=== PATIENT | male | born 1990 | race African-American/Black ===

== ENCOUNTER 2020-04-04 12:44 | Inpatient (IN) | payer MEDICAID, OTHER ==
[~2020-04-04] VITALS: Ht 188 cm; Wt 91.2 kg
[2020-04-04] MEDS ORDERED: LORAZEPAM 2MG/ML CPJ IM STA (13:07)
[2020-04-04] MEDS ORDERED: HALOPERIDOL LACTATE 5MG/ML VIAL IM STA (13:07)
[2020-04-04] MEDS ORDERED: CEFTRIAXONE 1 G PREMIX 50 ML IV ONE (14:30)
[2020-04-04 14:49] LABS: BASOPHILS % 0.7 % (0.0-2.0); EOSINOPHILS % 0.9 % (0.0-5.0); HEMATOCRIT. 30.7 % (42.0-52.0); HEMOGLOBIN. 10.3 g/dL (14.0-18.0); LYMPHOCYTES % 11.6 % (20.0-50.0); MEAN CORPUSCULAR HEMOGLOBIN 26.8 pg (28.0-32.0); MEAN CORPUSCULAR VOLUME 80.2 fL (80.0-94.0); MEAN PLATELET VOLUME 6.9 fl (7.4-10.4); MONOCYTES % 6.3 % (2.0-8.0); NEUTROPHILS % 80.5 % (40.0-76.0); PLATELET 484 x1000/uL (130-400); RED BLOOD CELL COUNT 3.83 mill/uL (4.7-6.1); RED CELL DISTRIBUTION WIDTH 17.4 % (11.6-14.6)
[2020-04-04 14:54] LABS: CHLORIDE 101 mEq/L (98-107)
[2020-04-04 14:59] LABS: ETHANOL BLOOD < 10 mg/dL
[2020-04-04 15:44] LABS: CLARITY URINE TURBID (CLEAR); COLOR URINE ORANGE (YELLOW); KETONES URINE 2+ (NEGATIVE); LEUKOCYTE ESTERASE URINE 1+ (NEGATIVE); NITRITE URINE POSITIVE (NEGATIVE); OCCULT BLOOD URINE 2+ (NEGATIVE); PH URINE 5.5 (4.5-8.0); PROTEIN URINE 2+ (NEGATIVE); SPECIFIC GRAVITY URINE 1.035 (1.005-1.030); UROBILINOGEN URINE 0.2 E.U./dL (0.2-1.0)
[2020-04-04 16:17] LABS: *BARBITURATES SCREEN URINE NEGATIVE (NEGATIVE)
[2020-04-04 16:18] LABS: *AMPHETAMINES SCREEN URINE NEGATIVE (NEGATIVE); *BENZODIAZEPINES SCREEN URINE NEGATIVE (NEGATIVE); *COCAINE SCREEN URINE NEGATIVE (NEGATIVE); METHADONE URINE SCREEN NEGATIVE (NEGATIVE); OPIATES URINE SCREEN NEGATIVE (NEGATIVE)
[2020-04-04 16:19] LABS: CANNABINOID URINE SCREEN PRESUMTIVE POSITIVE (NEGATIVE); PHENCYCLIDINE URINE SCREEN NEGATIVE (NEGATIVE)
[2020-04-04] MEDS: MORPHINE SULFATE 2 MG/ML CPJ (NOT FOR IM USE) IV PRN (17:50)
[2020-04-04] MEDS ORDERED: ONDANSETRON HCL 4MG/2ML INJ IV PRN (22:45)
[2020-04-04] MEDS ORDERED: LORAZEPAM 2MG/ML CPJ IV PRN (22:45)
[2020-04-04] MEDS ORDERED: MORPHINE SULFATE 2 MG/ML CPJ (NOT FOR IM USE) IV PRN (22:45)
[2020-04-04] MEDS ORDERED: CLONIDINE 0.1MG TABLET PO PRN (22:45)
[2020-04-04] MEDS ORDERED: VANCOMYCIN 1 G PREMIX 200 ML IV SCH (22:45)
[2020-04-04] MEDS ORDERED: IPRATROPIUM/ALBUTEROL 0.5-3(2.5)MG/3ML NEB NEB PRN (22:45)
[2020-04-04] MEDS: SODIUM CHLORIDE 0.9% 1,000 ML IV SCH (23:00)
[2020-04-04 23:20] VITALS: BP 107/58
[2020-04-05] VITALS: BP 107/58
[2020-04-05] MEDS: ACETAMINOPHEN 325MG TABLET PO PRN (01:06)
[2020-04-05] MEDS: VANCOMYCIN 1500MG in DEXTROSE 5% WATER 250ML IV SCH ×4 (02:00→20:34)
[2020-04-05 04:00] VITALS: BP 90/43
[2020-04-05] MEDS: SODIUM CHLORIDE 0.9% 1,000 ML IV SCH ×2 (06:14→19:00)
[2020-04-05 07:13] LABS: CHLORIDE 104 mEq/L (98-107)
[2020-04-05 07:15] LABS: BASOPHILS % 0.8 % (0.0-2.0); EOSINOPHILS % 4.6 % (0.0-5.0); HEMATOCRIT. 28.6 % (42.0-52.0); HEMOGLOBIN. 9.4 g/dL (14.0-18.0); LYMPHOCYTES % 22.8 % (20.0-50.0); MEAN CORPUSCULAR HEMOGLOBIN 26.3 pg (28.0-32.0); MEAN PLATELET VOLUME 7.2 fl (7.4-10.4); MONOCYTES % 10.3 % (2.0-8.0); NEUTROPHILS % 61.5 % (40.0-76.0); PLATELET 453 x1000/uL (130-400); RED BLOOD CELL COUNT 3.58 mill/uL (4.7-6.1); RED CELL DISTRIBUTION WIDTH 17.2 % (11.6-14.6)
[2020-04-05 08:00] VITALS: BP_SYST 100; BP_SYST 162; BP_DIAS 62; BP_DIAS 77
[2020-04-05] MEDS ORDERED: ENOXAPARIN 30MG/0.3ML SYR SUBCUT SCH (09:00)
[2020-04-05] MEDS: PIPERACILLIN/TAZOBACTAM 3.375 G in DEXT 5% WATER 100 ML IV SCH ×2 (12:00→18:00)
[2020-04-05 20:00] VITALS: BP 111/64
[2020-04-05] MEDS: MORPHINE SULFATE 2 MG/ML CPJ (NOT FOR IM USE) IV PRN (20:35)
[2020-04-06] VITALS: BP_SYST 120; BP_SYST 87; BP_DIAS 42; BP_DIAS 62
[2020-04-06] MEDS: PIPERACILLIN/TAZOBACTAM 3.375 G in DEXT 5% WATER 100 ML IV SCH ×4 (00:26→18:35)
[2020-04-06] MEDS: ACETAMINOPHEN 325MG TABLET PO PRN ×2 (00:41→18:38)
[2020-04-06 04:00] VITALS: BP 100/57
[2020-04-06] MEDS: SODIUM CHLORIDE 0.9% 1,000 ML IV SCH ×2 (05:00→15:00)
[2020-04-06] MEDS: MORPHINE SULFATE 2 MG/ML CPJ (NOT FOR IM USE) IV PRN ×3 (05:06→16:30)
[2020-04-06 07:09] LABS: BASOPHILS % 0.6 % (0.0-2.0); EOSINOPHILS % 5.6 % (0.0-5.0); HEMATOCRIT. 30.6 % (42.0-52.0); HEMOGLOBIN. 9.9 g/dL (14.0-18.0); LYMPHOCYTES % 24.6 % (20.0-50.0); MEAN CORPUSCULAR HEMOGLOBIN 26.2 pg (28.0-32.0); MEAN CORPUSCULAR VOLUME 81.1 fL (80.0-94.0); MEAN PLATELET VOLUME 7.2 fl (7.4-10.4); MONOCYTES % 11.8 % (2.0-8.0); NEUTROPHILS % 57.4 % (40.0-76.0); PLATELET 433 x1000/uL (130-400); RED BLOOD CELL COUNT 3.77 mill/uL (4.7-6.1); RED CELL DISTRIBUTION WIDTH 17.3 % (11.6-14.6)
[2020-04-06 07:56] LABS: CHLORIDE 104 mEq/L (98-107)
[2020-04-06 08:00] VITALS: BP 104/54
[2020-04-06] MEDS: ENOXAPARIN 40MG/0.4ML SYR SUBCUT SCH (08:59)
[2020-04-06] MEDS: VANCOMYCIN 1500MG in DEXTROSE 5% WATER 250ML IV SCH ×2 (09:00→18:39)
[2020-04-06 12:00] VITALS: BP 103/60
[2020-04-06] MEDS: POTASSIUM CHLORIDE 20MEQ TABLET SR PO NR ×2 (12:30→13:50)
[2020-04-06] MEDS: HYDROCODONE/ACETAMINOPHEN 5/325MG TABLET PO PRN ×2 (13:53→20:23)
[2020-04-06 16:00] VITALS: BP 97/65
[2020-04-06 20:00] VITALS: BP 120/62
[2020-04-07] VITALS: BP 95/49
[2020-04-07] MEDS: SODIUM CHLORIDE 0.9% 1,000 ML IV SCH ×2 (01:00→10:03)
[2020-04-07] MEDS: VANCOMYCIN 1500MG in DEXTROSE 5% WATER 250ML IV SCH ×2 (02:00→10:00)
[2020-04-07 04:00] VITALS: BP 96/50
[2020-04-07] MEDS: HYDROCODONE/ACETAMINOPHEN 5/325MG TABLET PO PRN ×3 (05:12→21:10)
[2020-04-07] MEDS: PIPERACILLIN/TAZOBACTAM 3.375 G in DEXT 5% WATER 100 ML IV SCH ×4 (05:20→11:32)
[2020-04-07 06:06] LABS: BASOPHILS % 0.5 % (0.0-2.0); HEMATOCRIT. 28.4 % (42.0-52.0); HEMOGLOBIN. 9.5 g/dL (14.0-18.0); LYMPHOCYTES % 12.7 % (20.0-50.0); MEAN CORPUSCULAR HEMOGLOBIN 26.4 pg (28.0-32.0); MEAN CORPUSCULAR VOLUME 79.1 fL (80.0-94.0); MEAN PLATELET VOLUME 7.2 fl (7.4-10.4); MONOCYTES % 8.1 % (2.0-8.0); NEUTROPHILS % 74.7 % (40.0-76.0); PLATELET 471 x1000/uL (130-400); RED BLOOD CELL COUNT 3.59 mill/uL (4.7-6.1); RED CELL DISTRIBUTION WIDTH 17.1 % (11.6-14.6)
[2020-04-07 06:07] LABS: CHLORIDE 105 mEq/L (98-107)
[2020-04-07 08:00] VITALS: BP 90/50
[2020-04-07] MEDS: ENOXAPARIN 40MG/0.4ML SYR SUBCUT SCH (09:00)
[2020-04-07 12:00] VITALS: BP 93/60
[2020-04-07 16:00] VITALS: BP 90/47
[2020-04-07 20:00] VITALS: BP 94/59
[2020-04-07] MEDS: AMOXICILLIN/POTASSIUM CLAVULANATE 875/125MG TAB PO SCH (21:09)
[2020-04-07] MEDS: SULFAMETHOXAZOLE/TRIMETHOPRIM 800/160MG TABLET PO SCH (21:11)
[2020-04-08 04:00] VITALS: BP 107/67
[2020-04-08 08:00] VITALS: BP 88/43
[2020-04-08] MEDS: ENOXAPARIN 40MG/0.4ML SYR SUBCUT SCH (09:00)
[2020-04-08] MEDS: SULFAMETHOXAZOLE/TRIMETHOPRIM 800/160MG TABLET PO SCH ×2 (09:05→21:39)
[2020-04-08] MEDS: AMOXICILLIN/POTASSIUM CLAVULANATE 875/125MG TAB PO SCH ×2 (09:05→21:39)
[2020-04-08 09:20] VITALS: BP 100/41
[2020-04-08] MEDS: HYDROCODONE/ACETAMINOPHEN 5/325MG TABLET PO PRN ×3 (09:31→20:32)
[2020-04-08 12:00] VITALS: BP 98/55
[2020-04-08 16:00] VITALS: BP 85/51
[2020-04-09] VITALS: BP 102/51
[2020-04-09 04:00] VITALS: BP 94/63
[2020-04-09] MEDS: ENOXAPARIN 40MG/0.4ML SYR SUBCUT SCH (09:00)
[2020-04-09] MEDS: AMOXICILLIN/POTASSIUM CLAVULANATE 875/125MG TAB PO SCH ×2 (09:27→20:29)
[2020-04-09] MEDS: ZINC SULFATE 220 MG ( 50 ) CAPSULE PO SCH (09:27)
[2020-04-09] MEDS: MULTIVITAMINS,THER W-MINERALS TABLET PO SCH (09:28)
[2020-04-09] MEDS: SULFAMETHOXAZOLE/TRIMETHOPRIM 800/160MG TABLET PO SCH ×2 (09:28→20:29)
[2020-04-09 09:32] VITALS: BP 100/44
[2020-04-09 12:00] VITALS: BP 90/47
[2020-04-09] MEDS ORDERED: ONDANSETRON HCL 4MG/2ML INJ IV PRN (12:30)
[2020-04-09 13:18] VITALS: BP 90/47
[2020-04-09] MEDS: ONDANSETRON HCL 4MG TABLET PO PRN ×2 (13:50→22:46)
[2020-04-09] MEDS ORDERED: HYDROCODONE/ACETAMINOPHEN 5/325MG TABLET PO PRN (14:45)
[2020-04-09 20:00] VITALS: BP 91/46
[2020-04-09] MEDS: ACETAMINOPHEN 325MG TABLET PO PRN (20:29)
[2020-04-10] VITALS: BP 94/48
[2020-04-10 04:00] VITALS: BP 99/45
[2020-04-10 08:00] VITALS: BP 97/49
[2020-04-10] MEDS: ENOXAPARIN 40MG/0.4ML SYR SUBCUT SCH (08:54)
[2020-04-10] MEDS: MULTIVITAMINS,THER W-MINERALS TABLET PO SCH (10:20)
[2020-04-10] MEDS: AMOXICILLIN/POTASSIUM CLAVULANATE 875/125MG TAB PO SCH ×2 (10:20→21:01)
[2020-04-10] MEDS: SULFAMETHOXAZOLE/TRIMETHOPRIM 800/160MG TABLET PO SCH (10:20)
[2020-04-10] MEDS: ZINC SULFATE 220 MG ( 50 ) CAPSULE PO SCH (10:20)
[2020-04-10] MEDS ORDERED: HYDROCODONE/ACETAMINOPHEN 5/325MG TABLET PO PRN (11:30)
[2020-04-10 12:00] VITALS: BP 101/56
[2020-04-10] MEDS: HYDROCODONE/ACETAMINOPHEN 5/325MG TABLET PO PRN ×2 (12:16→21:52)
[2020-04-10] MEDS ORDERED: LINEZOLID 600MG TABLET PO SCH (15:00)
[2020-04-10 16:00] VITALS: BP 93/47
[2020-04-10] MEDS: LINEZOLID 600MG TABLET PO SCH (17:17)
[2020-04-10 20:00] VITALS: BP 101/49
[2020-04-10] MEDS: ONDANSETRON HCL 4MG TABLET PO PRN (21:01)
[2020-04-11] VITALS: BP 98/57
[2020-04-11 04:00] VITALS: BP 99/56
[2020-04-11] MEDS: LINEZOLID 600MG TABLET PO SCH ×2 (06:11→18:58)
[2020-04-11] MEDS: ZINC SULFATE 220 MG ( 50 ) CAPSULE PO SCH (08:54)
[2020-04-11] MEDS: AMOXICILLIN/POTASSIUM CLAVULANATE 875/125MG TAB PO SCH ×2 (08:54→21:43)
[2020-04-11] MEDS: MULTIVITAMINS,THER W-MINERALS TABLET PO SCH (08:55)
[2020-04-11] MEDS: ENOXAPARIN 40MG/0.4ML SYR SUBCUT SCH ×2 (08:55→08:59)
[2020-04-11 12:00] VITALS: BP 111/59
[2020-04-11] MEDS: HYDROCODONE/ACETAMINOPHEN 5/325MG TABLET PO PRN ×2 (13:21→19:58)
[2020-04-11 16:00] VITALS: BP 107/36
[2020-04-11 20:00] VITALS: BP 98/47
[2020-04-12] VITALS: BP 101/61
[2020-04-12] MEDS: LINEZOLID 600MG TABLET PO SCH ×2 (05:31→18:10)
[2020-04-12 08:00] VITALS: BP_SYST 95; BP_SYST 98; BP_DIAS 46; BP_DIAS 51
[2020-04-12] MEDS: AMOXICILLIN/POTASSIUM CLAVULANATE 875/125MG TAB PO SCH ×2 (08:40→20:39)
[2020-04-12] MEDS: ZINC SULFATE 220 MG ( 50 ) CAPSULE PO SCH (08:40)
[2020-04-12] MEDS: MULTIVITAMINS,THER W-MINERALS TABLET PO SCH (08:40)
[2020-04-12] MEDS: ENOXAPARIN 40MG/0.4ML SYR SUBCUT SCH (08:41)
[2020-04-12 12:00] VITALS: BP 96/50
[2020-04-12] MEDS: SODIUM HYPOCHLORITE 0.125% 473ML SOLUTION TOP SCH (13:26)
[2020-04-12] MEDS: HYDROCODONE/ACETAMINOPHEN 5/325MG TABLET PO PRN ×2 (13:44→20:37)
[2020-04-12 16:00] VITALS: BP 102/57
[2020-04-12 20:00] VITALS: BP 97/46
[2020-04-13] VITALS: BP_SYST 110; BP_SYST 114; BP_DIAS 70; BP_DIAS 81
[2020-04-13 04:00] VITALS: BP 94/50
[2020-04-13] MEDS: LINEZOLID 600MG TABLET PO SCH ×2 (05:29→17:52)
[2020-04-13 08:00] VITALS: BP 91/49
[2020-04-13] MEDS: ENOXAPARIN 40MG/0.4ML SYR SUBCUT SCH (09:00)
[2020-04-13] MEDS: SODIUM HYPOCHLORITE 0.125% 473ML SOLUTION TOP SCH (09:24)
[2020-04-13] MEDS: ZINC SULFATE 220 MG ( 50 ) CAPSULE PO SCH (09:24)
[2020-04-13] MEDS: MULTIVITAMINS,THER W-MINERALS TABLET PO SCH (09:24)
[2020-04-13] MEDS: HYDROCODONE/ACETAMINOPHEN 5/325MG TABLET PO PRN ×2 (10:35→21:00)
[2020-04-13 12:00] VITALS: BP_SYST 88; BP_SYST 92; BP_DIAS 61
[2020-04-13 16:00] VITALS: BP_SYST 102; BP_SYST 93; BP_DIAS 44; BP_DIAS 56
[2020-04-13 20:00] VITALS: BP 109/44
[2020-04-14] VITALS: BP 99/42
[2020-04-14] MEDS: HYDROCODONE/ACETAMINOPHEN 5/325MG TABLET PO PRN ×3 (00:31→20:34)
[2020-04-14 04:00] VITALS: BP 96/60
[2020-04-14] MEDS: LINEZOLID 600MG TABLET PO SCH ×2 (06:32→18:30)
[2020-04-14 08:00] VITALS: BP 103/50
[2020-04-14] MEDS: ENOXAPARIN 40MG/0.4ML SYR SUBCUT SCH (09:00)
[2020-04-14] MEDS: ZINC SULFATE 220 MG ( 50 ) CAPSULE PO SCH (09:18)
[2020-04-14] MEDS: MULTIVITAMINS,THER W-MINERALS TABLET PO SCH (09:18)
[2020-04-14] MEDS: SODIUM HYPOCHLORITE 0.125% 473ML SOLUTION TOP SCH (09:19)
[2020-04-14 12:00] VITALS: BP 105/51
[2020-04-14] MEDS: AMOXICILLIN/POTASSIUM CLAVULANATE 875/125MG TAB PO SCH ×2 (13:12→20:33)
[2020-04-14 16:00] VITALS: BP 106/44
[2020-04-14 20:00] VITALS: BP 103/55
[2020-04-15] VITALS: BP 109/60
[2020-04-15] MEDS: HYDROCODONE/ACETAMINOPHEN 5/325MG TABLET PO PRN ×3 (00:52→10:41)
[2020-04-15 04:00] VITALS: BP 96/59
[2020-04-15] MEDS: LINEZOLID 600MG TABLET PO SCH ×2 (06:06→17:22)
[2020-04-15 08:00] VITALS: BP 99/55
[2020-04-15] MEDS: ZINC SULFATE 220 MG ( 50 ) CAPSULE PO SCH (08:22)
[2020-04-15] MEDS: SODIUM HYPOCHLORITE 0.125% 473ML SOLUTION TOP SCH (08:22)
[2020-04-15] MEDS: MULTIVITAMINS,THER W-MINERALS TABLET PO SCH (08:22)
[2020-04-15] MEDS: ENOXAPARIN 40MG/0.4ML SYR SUBCUT SCH (08:22)
[2020-04-15] MEDS: AMOXICILLIN/POTASSIUM CLAVULANATE 875/125MG TAB PO SCH ×2 (08:22→20:45)
[2020-04-15 12:00] VITALS: BP 106/56
[2020-04-15] MEDS: ONDANSETRON HCL 4MG TABLET PO PRN (17:22)
[2020-04-15 20:00] VITALS: BP 100/52
[2020-04-16] VITALS: BP 132/86
[2020-04-16] MEDS: ACETAMINOPHEN 325MG TABLET PO PRN (01:12)
[2020-04-16 04:00] VITALS: BP 101/52
[2020-04-16] MEDS: LINEZOLID 600MG TABLET PO SCH ×3 (06:00→18:34)
[2020-04-16 08:00] VITALS: BP 101/62
[2020-04-16] MEDS: ENOXAPARIN 40MG/0.4ML SYR SUBCUT SCH ×2 (09:00→09:09)
[2020-04-16] MEDS: MULTIVITAMINS,THER W-MINERALS TABLET PO SCH (09:08)
[2020-04-16] MEDS: ZINC SULFATE 220 MG ( 50 ) CAPSULE PO SCH (09:08)
[2020-04-16] MEDS: AMOXICILLIN/POTASSIUM CLAVULANATE 875/125MG TAB PO SCH ×2 (09:08→19:50)
[2020-04-16] MEDS: SODIUM HYPOCHLORITE 0.125% 473ML SOLUTION TOP SCH (09:10)
[2020-04-16] MEDS ORDERED: HYDROCODONE/ACETAMINOPHEN 5/325MG TABLET PO PRN (10:30)
[2020-04-16 12:00] VITALS: BP_SYST 108; BP_SYST 97; BP_DIAS 39; BP_DIAS 61
[2020-04-16] MEDS: HYDROCODONE/ACETAMINOPHEN 5/325MG TABLET PO PRN ×3 (14:20→22:55)
[2020-04-16 16:00] VITALS: BP 102/48
[2020-04-16 18:55] LABS: HEMATOCRIT 30.3 % (42.0-52.0); HEMOGLOBIN 9.8 g/dL (14.0-18.0); MEAN CORPUSCULAR HEMOGLOBIN 25.9 pg (28.0-32.0); MEAN CORPUSCULAR VOLUME 80.1 fL (80.0-94.0); PLATELET 660 x1000/uL (130-400); RED BLOOD CELL COUNT 3.78 mill/uL (4.7-6.1); RED CELL DISTRIBUTION WIDTH 18.1 % (11.6-14.6)
[2020-04-16 19:01] LABS: CHLORIDE 103 mEq/L (98-107)
[2020-04-16 20:00] VITALS: BP 116/47
[2020-04-17] VITALS: BP 114/51
[2020-04-17] MEDS: HYDROCODONE/ACETAMINOPHEN 5/325MG TABLET PO PRN ×5 (03:00→22:44)
[2020-04-17 04:00] VITALS: BP 112/60
[2020-04-17] MEDS: LINEZOLID 600MG TABLET PO SCH ×3 (06:02→22:43)
[2020-04-17 08:00] VITALS: BP 104/56
[2020-04-17] MEDS: MULTIVITAMINS,THER W-MINERALS TABLET PO SCH (08:40)
[2020-04-17] MEDS: AMOXICILLIN/POTASSIUM CLAVULANATE 875/125MG TAB PO SCH ×2 (08:40→22:44)
[2020-04-17] MEDS: ZINC SULFATE 220 MG ( 50 ) CAPSULE PO SCH (08:40)
[2020-04-17] MEDS: ENOXAPARIN 40MG/0.4ML SYR SUBCUT SCH (08:41)
[2020-04-17] MEDS: SODIUM HYPOCHLORITE 0.125% 473ML SOLUTION TOP SCH (08:51)
[2020-04-17 12:00] VITALS: BP 109/62
[2020-04-17 16:00] VITALS: BP 104/57
[2020-04-17 20:00] VITALS: BP 104/51
[2020-04-18] VITALS: BP 118/67
[2020-04-18] MEDS: ONDANSETRON HCL 4MG TABLET PO PRN (00:18)
[2020-04-18] MEDS: HYDROCODONE/ACETAMINOPHEN 5/325MG TABLET PO PRN ×3 (02:26→22:22)
[2020-04-18 04:00] VITALS: BP 96/55
[2020-04-18 08:00] VITALS: BP 94/47
[2020-04-18] MEDS: SODIUM HYPOCHLORITE 0.125% 473ML SOLUTION TOP SCH ×2 (09:00→17:59)
[2020-04-18] MEDS: ENOXAPARIN 40MG/0.4ML SYR SUBCUT SCH (09:00)
[2020-04-18] MEDS: LINEZOLID 600MG TABLET PO SCH ×2 (09:53→22:21)
[2020-04-18] MEDS: ZINC SULFATE 220 MG ( 50 ) CAPSULE PO SCH (09:54)
[2020-04-18] MEDS: AMOXICILLIN/POTASSIUM CLAVULANATE 875/125MG TAB PO SCH ×2 (09:54→22:21)
[2020-04-18] MEDS: MULTIVITAMINS,THER W-MINERALS TABLET PO SCH (09:55)
[2020-04-18 12:00] VITALS: BP 107/56
[2020-04-18 16:00] VITALS: BP 99/56
[2020-04-18 20:00] VITALS: BP 113/44
[2020-04-19] VITALS: BP 97/56
[2020-04-19 04:00] VITALS: BP 93/57
[2020-04-19 08:00] VITALS: BP 99/43
[2020-04-19] MEDS: SODIUM HYPOCHLORITE 0.125% 473ML SOLUTION TOP SCH (09:00)
[2020-04-19] MEDS: ENOXAPARIN 40MG/0.4ML SYR SUBCUT SCH (09:00)
[2020-04-19 12:00] VITALS: BP 107/72
[2020-04-19] MEDS: AMOXICILLIN/POTASSIUM CLAVULANATE 875/125MG TAB PO SCH ×2 (12:29→22:05)
[2020-04-19] MEDS: ZINC SULFATE 220 MG ( 50 ) CAPSULE PO SCH (12:29)
[2020-04-19] MEDS: MULTIVITAMINS,THER W-MINERALS TABLET PO SCH (12:29)
[2020-04-19] MEDS: HYDROCODONE/ACETAMINOPHEN 5/325MG TABLET PO PRN ×3 (12:33→22:05)
[2020-04-19] MEDS: LINEZOLID 600MG TABLET PO SCH ×2 (12:34→22:06)
[2020-04-19 16:00] VITALS: BP 121/66
[2020-04-19 20:00] VITALS: BP 107/51
[2020-04-20] VITALS: BP 98/52
[2020-04-20] MEDS: HYDROCODONE/ACETAMINOPHEN 5/325MG TABLET PO PRN ×4 (03:34→18:34)
[2020-04-20 04:00] VITALS: BP 163/55
[2020-04-20 08:00] VITALS: BP 111/62
[2020-04-20] MEDS: ENOXAPARIN 40MG/0.4ML SYR SUBCUT SCH (09:00)
[2020-04-20] MEDS: MULTIVITAMINS,THER W-MINERALS TABLET PO SCH (09:03)
[2020-04-20] MEDS: ZINC SULFATE 220 MG ( 50 ) CAPSULE PO SCH (09:03)
[2020-04-20] MEDS: AMOXICILLIN/POTASSIUM CLAVULANATE 875/125MG TAB PO SCH ×2 (09:03→20:10)
[2020-04-20] MEDS: SODIUM HYPOCHLORITE 0.125% 473ML SOLUTION TOP SCH (09:04)
[2020-04-20] MEDS: LINEZOLID 600MG TABLET PO SCH ×2 (09:04→20:10)
[2020-04-20] MEDS ORDERED: HYDR-4009 MT (10:00)
[2020-04-20] MEDS ORDERED: ZINC220C2 PO (10:00)
[2020-04-20 12:00] VITALS: BP 109/67
[2020-04-20 20:00] VITALS: BP 105/60
[2020-04-20] MEDS: ONDANSETRON HCL 4MG TABLET PO PRN (20:16)
[2020-04-21] VITALS: BP 100/59
[2020-04-21] MEDS: HYDROCODONE/ACETAMINOPHEN 5/325MG TABLET PO PRN ×4 (00:16→19:17)
[2020-04-21 04:00] VITALS: BP 108/48
[2020-04-21 08:00] VITALS: BP 118/77
[2020-04-21] MEDS: AMOXICILLIN/POTASSIUM CLAVULANATE 875/125MG TAB PO SCH (08:21)
[2020-04-21] MEDS: LINEZOLID 600MG TABLET PO SCH ×2 (08:21→21:43)
[2020-04-21] MEDS: MULTIVITAMINS,THER W-MINERALS TABLET PO SCH (08:21)
[2020-04-21] MEDS: ZINC SULFATE 220 MG ( 50 ) CAPSULE PO SCH (08:21)
[2020-04-21] MEDS: SODIUM HYPOCHLORITE 0.125% 473ML SOLUTION TOP SCH (08:22)
[2020-04-21] MEDS: ENOXAPARIN 40MG/0.4ML SYR SUBCUT SCH (09:00)
[2020-04-21 12:00] VITALS: BP 113/54
[2020-04-21] MEDS ORDERED: HYDROCODONE/ACETAMINOPHEN 5/325MG TABLET PO PRN (14:30)
[2020-04-21 16:00] VITALS: BP 115/59
[2020-04-21] MEDS: APIXABAN 5 MG TABLET PO SCH ×2 (17:00→17:38)
[2020-04-21] MEDS ORDERED: POLYMYXIN B SULFATE 500000 UNITS/VIAL IM SCH (18:00)
[2020-04-21] MEDS ORDERED: RIVAROXABAN 20 MG TABLET PO SCH (18:30)
[2020-04-21 20:00] VITALS: BP 101/76
[2020-04-21] MEDS: ONDANSETRON HCL 4MG TABLET PO PRN (22:12)
[2020-04-22] VITALS: BP 107/79
[2020-04-22] MEDS: HYDROCODONE/ACETAMINOPHEN 5/325MG TABLET PO PRN ×2 (03:48→10:35)
[2020-04-22 04:00] VITALS: BP 112/69
[2020-04-22 08:00] VITALS: BP 96/52
[2020-04-22] MEDS: ZINC SULFATE 220 MG ( 50 ) CAPSULE PO SCH (09:17)
[2020-04-22] MEDS: SODIUM HYPOCHLORITE 0.125% 473ML SOLUTION TOP SCH (09:17)
[2020-04-22] MEDS: MULTIVITAMINS,THER W-MINERALS TABLET PO SCH (09:17)
[2020-04-22] MEDS: LINEZOLID 600MG TABLET PO SCH (09:17)
[2020-04-22 12:00] VITALS: BP 108/22
[2020-04-22 15:39] VITALS: BP 99/60
[2020-04-22] MEDS ORDERED: AMOXICILLIN/POTASSIUM CLAVULANATE 875/125MG TAB PO SCH (21:00)
== END 2020-04-22 16:45 | disposition home or self-care (01) | DRG 720 ==
LOC: EDBD 13:01 → ER 13:01 → MICUSO 15:50 → 6EST 23:43
PROVIDERS: ADMIT Internal Medicine Nephrology; ATTEND Internal Medicine Nephrology
DX: A41.9 Sepsis, unspecified organism (principal); L89.154 Pressure ulcer of sacral region, stage 4; E44.0 Moderate protein-calorie malnutrition; G82.20 Paraplegia, unspecified; D64.9 Anemia, unspecified; F12.90 Cannabis use, unspecified, uncomplicated; N39.0 Urinary tract infection, site not specified; Z93.3 Colostomy status; Z99.3 Dependence on wheelchair; Z68.25 Body mass index [BMI] 25.0-25.9, adult
CPT/HCPCS: 36415; 80048; 80053; 80202; 80305; 80307; 80320; 80329; 81003; 85025; 85027; 87070; 87075; 87077; 87186; 96365; 99285; J0696; J1630; J1650; J2060; J2270; J2405; J2543; J3370; J3490; J7030; J7060; Q0162; G0480